=== PATIENT | female | born 1955 | race Caucasian/White ===

== ENCOUNTER 2019-10-22 14:00 | Outpatient (CLI) | payer OTHER, SELFPAY ==
[2019-10-22 14:32] LABS: Influenza Control Valid (Valid)
== END 2019-10-22 14:01 | disposition home or self-care (01) ==
PROVIDERS: PCP Internal Medicine; Visit Provider Internal Medicine
DX: R05 Cough (principal); R51 Headache; J02.9 Acute pharyngitis, unspecified; R50.9 Fever, unspecified
CPT/HCPCS: 87804

== ENCOUNTER 2019-11-20 11:40 | Outpatient (CLI) | payer OTHER, SELFPAY ==
--- NOTE | ~2019-11-20 | XR_ITS ---
EXAMINATION: XR chest 2V 11/20/2019 13:11 INDICATION: Chronic cough. Asthma. PROCEDURE: 2 view chest COMPARISON: 03/24/2018 FINDINGS: The lungs are clear. The cardiomediastinal silhouette is within normal limits. There are no pleural effusions. There is no pneumothorax suspected. IMPRESSION: 1: NO ACUTE CARDIOPULMONARY DISEASE. Reviewed, dictated and finalized at location A.
== END 2019-11-20 11:41 | disposition home or self-care (01) ==
LOC: CHSIMG 11:41
PROVIDERS: PCP Internal Medicine; Visit Provider Internal Medicine
DX: R05 Cough (principal)
CPT/HCPCS: 71046; 94060; 94726; 94729; 95012

== ENCOUNTER 2020-10-12 11:23 | Outpatient (CLI) | payer OTHER, SELFPAY | END 2020-10-12 11:24 | disposition home or self-care (01) | LOC: CHSIMG 11:24 | PROVIDERS: PCP Internal Medicine; Visit Provider Internal Medicine | DX: Z53.8 Procedure and treatment not carried out for other reasons (principal) | CPT/HCPCS: 99199 ==

== ENCOUNTER → 2020-11-07 00:12 | Outpatient (CLI) | payer OTHER, SELFPAY ==
[2020-11-07 19:29] LABS: SARS-CoV-2 RNA PCR Negative
== END ==
PROVIDERS: PCP Internal Medicine; Visit Provider Surgery
DX: Z01.812 Encounter for preprocedural laboratory examination (principal); Z20.822 Contact with and (suspected) exposure to COVID-19
CPT/HCPCS: C9803; U0003; U0005

== ENCOUNTER 2020-11-10 01:28 | Day surgery (SDC) | payer OTHER, SELFPAY ==
[2020-10-27 13:14] VITALS: BMI 31.7
[2020-11-10 06:23] VITALS: BMI 31.4
[2020-11-10] MEDS: LACTATED RINGERS 1,000 ML 150 ML IV CONT (06:39)
[2020-11-10 06:40] VITALS: BP 104/85; PULSE 91; RESP 18; TEMP 36.1; O2SAT 98
--- NOTE | 2020-11-10 07:26 | WPDANESEPPF ---
Anes - Initial Pre Proc Eval Procedure: Operation Date: 11/10/20 07:30 Proposed Procedures p Screening Colonoscopy - Pacheco Alvarez DO Date/Time: 11/10/20 07:26 Surgeon: Pacheco Alvarez DO Pre Op Diagnosis: neoplasm screening Patient Data Age: 65 Gender: F Height: 5 ft 7 in Weight: 90.9 kg Last Vital Signs Temp 97 F L 11/10/20 06:40 Pulse 91 11/10/20 06:40 Resp 18 11/10/20 06:40 BP 104/85 11/10/20 06:40 Pulse Ox 98 11/10/20 06:40 Allergies Allergy/AdvReac Type Severity Reaction Status Date / Time No Known Allergies Allergy Verified 11/10/20 06:15 Home Medications Medication Instructions Recorded Confirmed Type albuterol sulfate 90 mcg/actuation 1 puff INHALATION Q4-6H PRN gm 02/15/20 11/10/20 History aerosol inhaler atorvastatin 10 mg tablet 10 mg PO DAILY 02/15/20 11/10/20 History citalopram 20 mg tablet 20 mg PO DAILY 02/15/20 11/10/20 History levothyroxine 112 mcg capsule 112 mcg PO DAILY 02/15/20 11/10/20 History montelukast 10 mg tablet 10 mg PO DAILY 09/26/20 11/10/20 History fluticasone furoate 100 See Rx Instructions .ROUTE 10/05/20 11/10/20 Rx mcg-vilanterol 25 mcg/dose .COMPLEX #60 ea inhalation powder Patient hx anesthesia problems: none Family hx anesthesia problems: none PMFSH Past Medical History Medical History Chronic fatigue, unspecified Cubital tunnel syndrome on left Generalized anxiety disorder Hypothyroid Impaired fasting glucose Mixed hyperlipidemia Surgical History Surgical History History of removal of ovarian cyst Family History Family History Father , cause was AAA Aortic aneurysm Hypertension Mother Alzheimer's dementia Cerebrovascular accident Sibling Breast cancer Social History Social History Smoking status: Never smoker Alcohol intake: current Drinks per week: 1 Living arrangements: alone Gender identity (if verbalized by the patient): Female Spiritual care concerns: No Anes - Eval Final PreProcedure Day of Procedure 11/10/20 07:26 Patient weight: obese Heart: regular rate and rhythm Lungs: clear to auscultation Airway: Mallampati scale class II Neurological: alert and oriented Last oral intake: >/= 8 hours ASA classification: III Emergent: no Anesthetic plan: proceed Anesthesia type and monitoring: general GIVS and standard monitoring Informed Consent: The patient's anesthetic plan and its attendant risks and benefits were discussed with the patient/family/POA. Questions were solicited and answers provided to the satisfaction of the patient/family/POA.
--- NOTE | 2020-11-10 07:32 | PM.IMHP ---
H&P: HPI History of Present Illness Date/Time: 11/10/20 07:32 Chief Complaint: screening colon Narrative: 65 yo woman presents for colonoscopy. Last done 12-14 years ago and was normal. Denies fam hx colon cancer. Denies hematochezia or melena. Review of Systems Review of Systems: All systems reviewed & are unremarkable except as noted in HPI and below Constitutional: Constitutional: Denies chills, Denies fever(s), Denies headache(s) and Denies weight loss Eyes: Eyes: Denies change in vision ENT: Denies dizziness, Denies headache(s), Denies neck mass and Denies throat swelling Cardiovascular: Cardiovascular: Denies chest pain, Denies lightheadedness and Denies dyspnea Respiratory: Respiratory: Denies cough, Denies dyspnea and Denies wheezing Gastrointestinal: Gastrointestinal: Denies abdominal pain, Denies change in bowel habits, Denies nausea and Denies vomiting Genitourinary: Genitourinary: Denies hematuria and Denies dysuria Musculoskeletal: Musculoskeletal: Reports as per HPI Integumentary/Breasts: Skin/Breast: Reports as per HPI Neurologic: Denies dizziness and Denies headache(s) Allergic/Immunologic: Allergic/Immunologic: Denies throat swelling and Denies wheezing PMF Past Medical History Medical History Chronic fatigue, unspecified Cubital tunnel syndrome on left Generalized anxiety disorder Hypothyroid Impaired fasting glucose Mixed hyperlipidemia Surgical History Surgical History History of removal of ovarian cyst Family History Family History Father , cause was AAA Aortic aneurysm Hypertension Mother Alzheimer's dementia Cerebrovascular accident Sibling Breast cancer Social History Social History Smoking status: Never smoker Alcohol intake: current Drinks per week: 1 Living arrangements: alone Gender identity (if verbalized by the patient): Female Spiritual care concerns: No Meds Home Medications and Allergies Home Medications Medication Instructions Recorded Confirmed Type albuterol sulfate 90 mcg/actuation 1 puff INHALATION Q4-6H PRN gm 02/15/20 11/10/20 History aerosol inhaler atorvastatin 10 mg tablet 10 mg PO DAILY 02/15/20 11/10/20 History citalopram 20 mg tablet 20 mg PO DAILY 02/15/20 11/10/20 History levothyroxine 112 mcg capsule 112 mcg PO DAILY 02/15/20 11/10/20 History montelukast 10 mg tablet 10 mg PO DAILY 09/26/20 11/10/20 History fluticasone furoate 100 See Rx Instructions .ROUTE 10/05/20 11/10/20 Rx mcg-vilanterol 25 mcg/dose .COMPLEX #60 ea inhalation powder Allergies Allergy/AdvReac Type Severity Reaction Status Date / Time No Known Allergies Allergy Verified 11/10/20 06:15 Vital Signs Vital Signs - 24 hr 11/10/20 06:40 Temperature 36.1 C L Pulse Rate 91 Respiratory Rate 18 Blood Pressure 104/85 Pulse Oximetry 98 Exam Const: General: no acute distress and alert Orientation/consciousness: patient oriented x3 HENMT: Head: normocephalic and atraumatic Ears: hearing grossly normal bilaterally General nose exam: Normal nares present Mouth: Yes Normal oral and palatal mucosa present Eyes: Periorbital: periorbital findings normal Sclera: sclerae normal EOM: EOMs intact bilaterally Neck: Neck: normal visual inspection, no lymphadenopathy and trachea midline Chest: Chest palpation & inspection: normal inspection of the chest Resp: Effort & Inspection: normal respiratory effort Auscultation: clear to auscultation bilaterally Cardio: Jugular venous distension: no JVD Rate: regular rate Rhythm: regular rhythm Heart sounds: S1 normal heart sound present and S2 normal heart sound present Peripheral pulses: Peripheral pulses 2+ throughout GI: Inspection: normal to inspection GI
[2020-11-10 07:58] VITALS: BP 92/56; PULSE 74; RESP 16; O2SAT 96
[2020-11-10 08:08] VITALS: BP 106/72; PULSE 68; RESP 18; O2SAT 98
[2020-11-10 08:18] VITALS: BP 106/73; PULSE 62; RESP 16; O2SAT 98
== END 2020-11-10 08:30 | disposition home or self-care (01) ==
PROVIDERS: PCP Internal Medicine; Visit Provider Surgery
PROC: 0DJD8ZZ Inspection of Lower Intestinal Tract, Via Natural or Artificial Opening Endoscopic (ICD-10-PCS; CPT 45378; principal; 2020-11-10 07:30)
DX: Z12.11 Encounter for screening for malignant neoplasm of colon (principal); D12.4 Benign neoplasm of descending colon; E03.9 Hypothyroidism, unspecified; E78.2 Mixed hyperlipidemia; G56.22 Lesion of ulnar nerve, left upper limb; R53.82 Chronic fatigue, unspecified; R73.01 Impaired fasting glucose; F41.1 Generalized anxiety disorder
CPT/HCPCS: 45380; 88305; C9803; J2704; J7120; U0003; U0005

== ENCOUNTER 2021-02-22 09:46 | Outpatient (CLI) | payer OTHER, SELFPAY ==
--- NOTE | ~2021-02-22 | MM_ITS ---
EXAMINATION: MM screening fanny BI w andres HISTORY: Screening TECHNIQUE: Craniocaudal and mediolateral oblique 3-D tomosynthesis images were obtained and synthetic 2-D images were generated. CAD analysis was submitted and interpreted. COMPARISON: Comparison to multiple prior studies sequentially, with oldest reviewed study dated 10/19. BREAST PARENCHYMAL COMPOSITION: There are scattered areas of fibroglandular density. FINDINGS: There is no evidence of suspicious mass, calcification, or architectural distortion to sugg est malignancy in either breast. There has been no suspicious interval change. IMPRESSION: 1. No mammographic evidence of malignancy. 2. Recommend routine screening mammography in one year. BI-RADS Category 1: Negative Reviewed, dictated and finalized at location A.
== END 2021-02-22 09:47 | disposition home or self-care (01) ==
LOC: CHSIMG 09:47
PROVIDERS: PCP Internal Medicine; Visit Provider Internal Medicine
DX: Z12.31 Encounter for screening mammogram for malignant neoplasm of breast (principal)
CPT/HCPCS: 77063; 77067

== ENCOUNTER 2021-05-24 08:54 | Outpatient (CLI) | payer OTHER, SELFPAY ==
--- NOTE | 2021-05-24 09:05 | PC.NURSE ---
Here for OP covid infusion, taken to isolation room
--- NOTE | 2021-05-24 09:15 | PC.NURSE ---
Given information sheet on infusion, consent signed
[2021-05-24] MEDS: FAMOTIDINE 20 MG TABLET PO (09:17)
[2021-05-24] MEDS: ACETAMINOPHEN 325 MG TABLET 650 MG PO (09:17)
[2021-05-24] MEDS: diphenhydrAMINE HCl CAP 25 MG CAPSULE PO (09:17)
[2021-05-24 09:40] VITALS: BP 104/63; PULSE 67; RESP 18; TEMP 36.2; O2SAT 97
[2021-05-24 11:00] VITALS: BP 108/77; PULSE 63; RESP 18; TEMP 36.1; O2SAT 97
--- NOTE | 2021-05-24 11:06 | PC.NURSE ---
saline lock removed, tolerated infusion well, discharged to home ambulatory
== END 2021-05-24 08:55 | disposition home or self-care (01) ==
LOC: CHSTREATRM 08:56
PROVIDERS: PCP Internal Medicine; Visit Provider Internal Medicine
DX: Z23 Encounter for immunization (principal); U07.1 COVID-19
CPT/HCPCS: 96365; A9270; M0245; Q0245

== ENCOUNTER 2021-10-23 15:38 | Outpatient (CLI) | payer OTHER, SELFPAY ==
--- NOTE | ~2021-10-23 | XR_ITS ---
EXAMINATION: XR chest 2V DATE: 10/23/2021 16:05 INDICATION: Acute asthma exacerbation with one week of cough TECHNIQUE: frontal and lateral views of the chest were obtained. COMPARISON: Chest radiograph dated 11/20/2019 FINDINGS: The lungs remain clear with no focal airspace opacities, pulmonary edema, pleural effusion or pneumot horax. The cardiomediastinal silhouette is normal. Chronic mild lower thoracic compression fracture. Moderate thoracic spondylosis. IMPRESSION: 1. No acute cardiopulmonary disease. Reviewed, dictated and finalized at location A.
== END 2021-10-23 15:39 | disposition home or self-care (01) ==
LOC: CHSIMG 15:39
PROVIDERS: PCP Internal Medicine; Visit Provider Internal Medicine
DX: J45.901 Unspecified asthma with (acute) exacerbation (principal)
CPT/HCPCS: 71046

== ENCOUNTER 2022-03-23 12:49 | Outpatient (CLI) | payer OTHER, SELFPAY ==
--- NOTE | ~2022-03-23 | MM_ITS ---
EXAMINATION: MM screening fanny BI w andres HISTORY: Screening mammogram TECHNIQUE: Craniocaudal and mediolateral oblique 3-D tomosynthesis images were obtained and synthetic 2-D images were generated. CAD analysis was submitted and interpreted. COMPARISON: 02/22/2021, 05/21/2019, 07/2017 bilateral screening mammogram examinations BREAST PARENCHYMAL COMPOSITION: The breasts are almost entirely fatty. FINDINGS: There are scattered bilateral benign calcifications, primarily calcified microhematomas. Th ere is no evidence of suspicious mass, calcification, or architectural distortion to suggest malignan cy in either breast. There has been no suspicious interval change. IMPRESSION: 1. No mammographic evidence of malignancy. 2. Recommend routine screening mammography in one year. BI-RADS Category 2: Benign finding(s). Reviewed, dictated and finalized at location A.
== END 2022-03-23 12:50 | disposition home or self-care (01) ==
LOC: CHSIMG 12:51
PROVIDERS: PCP Internal Medicine; Visit Provider Internal Medicine
DX: Z12.31 Encounter for screening mammogram for malignant neoplasm of breast (principal)
CPT/HCPCS: 77063; 77067

== ENCOUNTER 2022-06-21 17:09 | Outpatient (CLI) | payer OTHER, SELFPAY ==
--- NOTE | ~2022-06-21 | XR_ITS ---
XR knee LT min 4V DATE: 06/21/2022 18:30 INDICATION: Knee pain TECHNIQUE: [place], lateral and standing PA and AP views COMPARISON: None FINDINGS: No fracture or dislocation or joint effusion. Joint spaces are preserved. No radiopaque int ra-articular loose body or chondrocalcinosis. No periosteal reaction or bone destruction. IMPRESSION: No significant abnormality Reviewed, dictated and finalized at location B. ER HOOKER IMPRESSION: No significant abnormality
--- NOTE | ~2022-06-21 | XR_ITS ---
XR knee RT min 4V DATE: 06/21/2022 18:31 INDICATION: Knee pain TECHNIQUE: [place], lateral and standing AP and PA views COMPARISON: None FINDINGS: No fracture or dislocation or joint effusion. No radiopaque intra-articular loose body or c hondrocalcinosis. No periosteal reaction or bone destruction. Joint spaces are well preserved. IMPRESSION: No significant abnormality Reviewed, dictated and finalized at location B. PAN OPERATOR IMPRESSION: No significant abnormality
== END 2022-06-21 17:10 | disposition home or self-care (01) ==
PROVIDERS: PCP Internal Medicine; Visit Provider Internal Medicine
DX: M25.562 Pain in left knee (principal); M25.561 Pain in right knee
CPT/HCPCS: 73564

== ENCOUNTER 2022-07-10 12:57 | Outpatient (RCR) | payer OTHER, SELFPAY ==
--- NOTE | 2022-07-10 14:12 | PTOPEVAL1 ---
Assessment and note entered by Celena March, PT Evaluation Information Assessment Status Evaluation Diagnosis B knee pain Subjective Information Manda Hopkins reports that she started having bilateral knee pain about one year ago and it has gotten worse. She is noting difficulty going up and down stairs. She had x-rays that were negative . She started having pain in her right hip about 2 -3 months ago. She notes sometimes she wakes up with pain on the outside of her right knee. She has to go up and down stairs to get to her laundry . Reported Pain Level Pain Score 0: Self Report Assessment PT Clinical Summary Manda Hopkins presents with chronic bilateral knee pain and subacute right hip pain all with an insidious onset. X-rays on bilateral knees came back normal. 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 She objectively demonstrates decreased and painful right hip ROM, decreased right piriformis and bilateral hamstring flexibility, decreased bilateral knee and hip strength, and decreased functional abilities. She will benefit from skilled PT to address these limitations. Plan of Care Interventions Hot Pack/Cold Pack,Manual Therapy,Neuro Re- education,Patient/Caregiver Educati,Therapeutic Activities,Therapeutic Exercise PT Services Indicated Yes Treatment Frequency and 2 times a week for 8 visits Duration These treatments will address the objective and functional deficits as defined above. The patient will be advanced safely and appropriately in order for the patient to progress towards his/her prior level of function. Additional exercises will be introduced and as well as a comprehensive home exercise program upon discharge, if needed, ?to ensure carryover of functional gains achieved in the clinic. This treatment plan has been reviewed and agreement upon by the patient.
--- NOTE | 2022-07-10 14:20 | PTOPEVAL1 ---
Assessment and note entered by Celena March, PT Evaluation Information Assessment Status Evaluation Diagnosis B knee pain Onset 06/22/22 Subjective Information Manda Hopkins reports that she started having bilateral knee pain about one year ago and it has gotten worse. She is noting difficulty going up and down stairs. She had x-rays that were negative . She started having pain in her right hip about 2 -3 months ago. She notes sometimes she wakes up with pain on the outside of her right knee and can not lay on her right side. She has to go up and down stairs to get to her laundry. Reported Pain Level Pain Score 0: Self Report Assessment PT Clinical Summary Manda Hopkins presents with chronic bilateral knee pain and subacute right hip pain all with an insidious onset. X-rays on bilateral knees came back normal. 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 She objectively demonstrates decreased and painful right hip ROM, decreased right piriformis and bilateral hamstring flexibility, decreased bilateral knee and hip strength, and decreased functional abilities. She will benefit from skilled PT to address these limitations. Plan of Care Interventions Hot Pack/Cold Pack,Manual Therapy,Neuro Re- education,Patient/Caregiver Educati,Therapeutic Activities,Therapeutic Exercise PT Services Indicated Yes Treatment Frequency and 2 times a week for 8 visits Duration These treatments will address the objective and functional deficits as defined above. The patient will be advanced safely and appropriately in order for the patient to progress towards his/her prior level of function. Additional exercises will be introduced and as well as a comprehensive home exercise program upon discharge, if needed, ?to ensure carryover of functional gains achieved in the clinic. This treatment plan has been reviewed and agreement upon by the patient.
--- NOTE | 2022-08-07 13:01 | PTOPREEVAL ---
Assessment and note entered by JT File, PT Evaluation Information Assessment Status Progress Diagnosis B knee pain Onset 06/22/22 Subjective Information patient reports she has only been to therapy for her initial evaluation. she reports she has not been compliant her HEP at home, but reports she is ready to return to therapy and get back to work on her bilateral knee and R hip issues. she reports she has no hip or knee pain today, but reports at night she will have pain in the R knee and lower leg. Reported Pain Level Pain Score 0: Self Report Assessment PT Clinical Summary mrs. thomson presents to skilled PT services nearly 1 month since her initial evaluation/last visit. she continues to present with weakness in the hips , tightness in the hips, and pain with activities. she does display some improvement in overall LE strength, but continues to be limited in stair climbing, ambulation, and sleeping due to pain. she would do well to return to skilled PT under he initial POC to achieve improved functional activity performance and quality of life. Plan of Care Interventions Electrical Stimulation,Hot Pack/Cold Pack,Manual Therapy,Neuro Re-education,Patient/Caregiver Educati,Therapeutic Activities,Therapeutic Exercise PT Services Indicated Yes Treatment Frequency and continue 2x weekly for 7 remaining visits on plan Duration of care. These treatments will address the objective and functional deficits as defined above. The patient will be advanced safely and appropriately in order for the patient to progress towards his/her prior level of function. Additional exercises will be introduced and as well as a comprehensive home exercise program upon discharge, if needed, ?to ensure carryover of functional gains achieved in the clinic. This treatment plan has been reviewed and agreement upon by the patient.
--- NOTE | 2022-11-20 16:29 | PCPTNOTE ---
11/20/22: Patient was last seen in PT on 08/09/22. She changed insurance and was no longer in network so she self discharged. Celena March, PT
== END 2022-08-09 23:59 | disposition home or self-care (01) ==
LOC: CHSPT 12:57
PROVIDERS: PCP Internal Medicine; Visit Provider Internal Medicine
DX: M25.562 Pain in left knee (principal); M25.561 Pain in right knee
CPT/HCPCS: 97014; 97110; 97112; 97161; G0283

== ENCOUNTER 2023-08-20 14:17 | Outpatient (CLI) | payer MEDICARE, SELFPAY ==
--- NOTE | ~2023-08-20 | MM_ITS ---
EXAMINATION: MM screening fanny BI w andres HISTORY: Screening TECHNIQUE: Craniocaudal and mediolateral oblique 3-D tomosynthesis images were obtained and synthetic 2-D images were generated. CAD analysis was submitted and interpreted. COMPARISON: Comparison to multiple prior studies sequentially, with oldest reviewed study dated 03/14. BREAST PARENCHYMAL COMPOSITION: The breasts are almost entirely fatty. FINDINGS: There is no evidence of suspicious mass, calcification, or architectural distortion to sugg est malignancy in either breast. There has been no suspicious interval change. IMPRESSION: 1. No mammographic evidence of malignancy. 2. Recommend routine screening mammography in one year. BI-RADS Category 1: Negative Reviewed, dictated and finalized at location A. FORESTER
== END 2023-08-20 14:18 | disposition home or self-care (01) ==
LOC: CHSIMG 14:19
PROVIDERS: PCP Internal Medicine; Visit Provider Internal Medicine
DX: Z12.31 Encounter for screening mammogram for malignant neoplasm of breast (principal)
CPT/HCPCS: 77063; 77067

== ENCOUNTER 2024-09-23 09:23 | Outpatient (CLI) | payer MEDICARE, SELFPAY ==
--- NOTE | ~2024-09-23 | MM_ITS ---
EXAMINATION: MM screening fanny BI w andres HISTORY: Screening TECHNIQUE: Craniocaudal and mediolateral oblique 3-D tomosynthesis images were obtained and synthetic 2-D images were generated. CAD analysis was submitted and interpreted. COMPARISON: Comparison to multiple prior studies sequentially, with oldest reviewed study dated 06/05. BREAST PARENCHYMAL COMPOSITION: Not Dense: The breasts are almost entirely fatty. FINDINGS: There is no evidence of suspicious mass, calcification, or architectural distortion to sugg est malignancy in either breast. There has been no suspicious interval change. IMPRESSION: 1. No mammographic evidence of malignancy. 2. Recommend routine screening mammography in one year. BI-RADS Category 1: Negative Reviewed, dictated and finalized at location B. RONMENTAL ENGINEER SCIENTIST
--- OUTSIDE RECORDS SUMMARY | 2024-09-23 09:36 | XMS_ITS | Clinical Summary ---
Author Organization [facility] Address [address] [address] Care Team Providers Care Margarine Maker Name Role Phone Lesly Reina MD Primary Care Provider [phone] Source Comments [facility],non-owned Affiliates and Associated Physician Practices is amultiple site organization consisting of ambulatory clinics and hospital sitesin [place], [place], [place] and [place]. This disclosure is being madepursuant to the Care Everywhere program and may not contain all information available regarding this patient. Last updated 18.[employer] [facility] Allergies No known active allergies Medications * Be aware that medications may not be up to date on this document. Alwaysverify current medications with the patient. Medication Sig Dispensed Refills Start Date End Date Status atorvastatin (LIPITOR) 10 MG tablet Take 10 mg by mouth once daily Active citalopram (CELEXA) 20 MG tablet Take 20 mg by mouth once daily 01/26/2021 Active levothyroxine (SYNTHROID) 112 MCG tablet Take 112 mcg by mouth every morning 01/26/2021 Active ALBUTEROL IN Inhale by mouth as needed Active budesonide-formoterol (SYMBICORT) 160-4.5 MCG/ACT inhalerIndications:Cou gh,Severe persistent asthma, unspecified whether complicated (HCC) Inhale 2 (two) puffs by mouth 2 times daily 10.2 g 2 08/01/2021 Active albuterol HFA (VENTOLIN HFA) 108 (90 Base) MCG/ACT inhaler Inhale 2 (two) puffs by mouth every 4 hours as needed 54 g 4 10/11/2021 Active Immunizations Name Administration Dates Next Due INFLUENZA VACCINE, TRIV. (AF LURIA, FLUZONE TRIVALENT; 6MO+) (IIV3) 06/25/2012 INFLUENZA VACCINE 06/22/2016 INFLUENZA VACCINE, HIGH-DOSE , QUADR. (FLUZONE HIGH-DOSE QUADRIVALENT; 65Y+), 0.7 ML (HD-IIV4) 04/19/2021 INFLUENZA VACCINE, QUADR. (F LUZONE; FLULAVAL; FLUARIX; AFLURIA QUADRIVALENT; 6MO+), 0.5 ML (IIV4) 05/05/2020,05/28/2018 PNEUMOCOCCAL PPSV23 08/17/2020 PNEUMOCOCCAL PPV VACCINE 03/14/2015 TD VACCINE 02/27/2005 ZOSTER VACCINE, LIVE 07/11/2016 Zoster Hzv Vacc Recombinant Inj Im 03/14/2021 Family History Medical History Relation Name Comments CVA Father Heart Failure Father CVA Mother Heart Failure Mother Cancer - Breast Sister Relation Name Status Comments Father Mother Sister Alive Social History Tobacco Use Types Packs/Day Years Used Date Smoking Tobacco: Never Smokeless Tobacco: Never Alcohol Use Standard Drinks/Week Comments Yes 2 (1 standard drink = 0.6 oz pur e alcohol) Sex and Gender Information Value Date Recorded Sex Assigned at Not on file Gender Identity Not on file Sexual Orientation Not on file Last Filed Vital Signs Vital Sign Reading Time Taken Comments Blood Pressure 128/78 10/11/2021 10:30 AM LINOTYPIST Pulse 84 10/11/2021 10:30 AM LINOTYPIST Temperature 36.2 C (97.2 F) 10/11/2021 10:30 AM LINOTYPIST Respiratory Rate 16 10/11/2021 10:30 AM LINOTYPIST Oxygen Saturation 97% 10/11/2021 10:30 AM LINOTYPIST Inhaled Oxygen Concentration - - Weight 89.9 kg (198 lb 3.2 oz) 10/11/2021 10:30 AM LINOTYPIST Height 167.6 cm (5' 6 ) 07/19/2021 10:39 AM LINOTYPIST Body Mass Index 31.99 07/19/2021 10:39 AM LINOTYPIST Plan of Treatment Health Maintenance Due Date Last Done Comments BONE DENSITY TESTING 1955 COLOGUARD (AGES 45-75) - COLON CA SCREENING 1956 COLON MONITORING 1956 COLONOSCOPY - COLON CA SCREENING 1956 CT COLONOGRAPHY - COLON CA SCREENING 1955 Colorectal Cancer Screening 1955 FIT - COLON CA SCREENING 1956 FLEX SIG - COLON CA SCREENING 1955 MAMMOGRAM 1955 HEPATITIS C SCREENING 04/01/1974 DTAP/TDAP/TD VACCINES (2 - Td or Tdap) 02/27/2015 02/27/2005 SCREENING FOR DIABETES 04/19/2021 ZOSTER VACCINE (3 of 3) 05/09/2021 03/14/2021, 07/11 PNEUMOCOCCAL VACCINE 50+ (2 of 2 - PCV) 08/17/2021 08/17/2020, 03/14/2015 COVID-19 VACCINE (3 - season) 2024 11/04/2020, 10/07/2020 INFLUENZA VACCINE (#1) 2024 , 05/05/2020, 05/28/2018, Additional history exists DEPRESSION SCREENING 08/05/2024 Respiratory Syncytial Virus (RSV) Vaccine Pt: or over 60 yrs (1 - 1-dose 75+ series) 2031 HEPATITIS B VACCINE Aged Out No longe r eligible based on patient's age to complete this topic HIB VACCINE Aged Out No longer eligi ble based on patient's age to complete this topic HPV VACCINE Aged Out No longer eligi ble based on patient's age to complete this topic MENINGOCOCCAL (Group B) VACCINE Aged Out No longer eligible based on patient's age to complete this topic MENINGOCOCCAL VACCINE Aged Out No little rui eligible based on patient's age to complete this topic Care Teams Margarine Maker Relationship Specialty Start Date End Date Lesly Reina MD [address] [place] [address] PCP - General 01/04/21
--- OUTSIDE RECORDS SUMMARY | 2024-09-23 09:36 | XMS_ITS | Referral Summary ---
Author Organization [address] Address [address] [place] [id number] Care Team Providers Care Encapsulator Name Role Phone Unknown, Notinfile Primary Care Provider Unavail able Allergies No known active allergies Medications atorvastatin (LIPITOR) 10 mg tablet Active citalopram (CeleXA) 10 mg tablet Active levothyroxine (Levo-T) 112 mcg tablet Active citalopram (CeleXA) 20 mg tablet 01/26/2021 Active Active Problems No known active problems Social History Tobacco Use Types Packs/Day Years Used Date Smoking Tobacco: Never Assessed Comments Unknown Sex and Gender Information Value Date Recorded Sex Assigned at Not on file Legal Sex Female 10:32 AM CDT Gender Identity Female 04/02/2021 10:47 AM CDT Sexual Orientation Straight 04/02/2021 10 :47 AM CDT Last Filed Vital Signs Vital Sign Reading Time Taken Comments Blood Pressure 130/82 04/02/2021 12:39 PM CDT Pulse 89 04/02/2021 12:39 PM CDT Temperature 36.2 C (97.2 F) 04/02/2021 12:39 PM CDT Respiratory Rate 18 04/02/2021 12:39 PM CDT Oxygen Saturation 95% 04/02/2021 12:39 PM CDT Inhaled Oxygen Concentration - - Weight 89.4 kg (197 lb) 04/02/2021 12:39 PM CDT Height 167.6 cm (5' 6 ) 04/02/2021 12:39 PM CDT Body Mass Index 31.8 04/02/2021 12:39 PM CDT Plan of Treatment Not on file Insurance [facility] H[facility] Care Teams Encapsulator Relationship Specialty Start Date End Date Unknown, Notinfile PCP - General 04/02/21
--- OUTSIDE RECORDS SUMMARY | 2024-09-23 09:36 | XMS_ITS | Patient Health Summary ---
Author Organization [facility] [employer] Address [address] [address] Care Team Providers Care Salvage Diver Name Role Phone Lesly Reina MD Primary Care Provider Note from [facility],non-owned Affiliates and Associated Physician Practices is amultiple site organization consisting of ambulatory clinics and hospital sitesin [place], [place], [place] and [place]. This disclosure is being madepursuant to the Care Everywhere program and may not contain all information available regarding this patient. Last updated 18.[facility] [employer] Allergies No known active allergies Medications * Be aware that medications may not be up to date on this document. Alwaysverify current medications with the patient. * atorvastatin (LIPITOR) 10 MG tablet Take 10 mg by mouth once daily * citalopram (CELEXA) 20 MG tablet(Started 01/26/2021) Take 20 mg by mouth once daily * levothyroxine (SYNTHROID) 112 MCG tablet(Started 01/26/2021) Take 112 mcg by mouth every morning * ALBUTEROL IN Inhale by mouth as needed * budesonide-formoterol (SYMBICORT) 160-4.5 MCG/ACT inhaler(Started 08/01/2021) Inhale 2 (two) puffs by mouth 2 times daily 2 refills by 08/01/2022 * albuterol HFA (VENTOLIN HFA) 108 (90 Base) MCG/ACT inhaler(Started 10/11/2021) Inhale 2 (two) puffs by mouth every 4 hours as needed 4 refills by 10/11/2022 Immunizations * INFLUENZA VACCINE, TRIV. (AFLURIA, FLUZONE TRIVALENT; 6MO+) (IIV3)(Given 06/25/2012) * INFLUENZA VACCINE(Given 06/22/2016) * INFLUENZA VACCINE, HIGH-DOSE, QUADR. (FLUZONE HIGH-DOSE QUADRIVALENT; 65Y+), 0.7 ML (HD-IIV4)(Given 04/19/2021) * INFLUENZA VACCINE, QUADR. (FLUZONE; FLULAVAL; FLUARIX; AFLURIA QUADRIVALENT; 6MO+), 0.5 ML (IIV4)(Given 05/05/2020, 05/28/2018) * PNEUMOCOCCAL PPSV23(Given 08/17/2020) * PNEUMOCOCCAL PPV VACCINE(Given 03/14/2015) * TD VACCINE(Given 02/27/2005) * ZOSTER VACCINE, LIVE(Given 07/11/2016) * Zoster Hzv Vacc Recombinant Inj Im(Given 03/14/2021) Social History Tobacco Use Types Packs/Day Years [...] Comments Blood Pressure 128/78 10/11/2021 10:30 AM BANQUET P[facility]OT Pulse 84 10/11/2021 10:30 AM BANQUET P[facility]OT Temperature 36.2 C (97.2 F) 10/11/2021 10:30 AM BANQUET PILOT Respiratory Rate 16 10/11/2021 10:30 AM B[facility] P[facility]OT Oxygen Saturation 97% 10/11/2021 10:30 AM BANQUET PILOT Inhaled Oxygen Concentration - - Weight 89.9 kg (198 lb 3.2 oz) 10/11/2021 10:30 AM [facility] P[facility] Height 167.6 cm (5' 6 ) 07/19/2021 10:39 AM [facility] Body Mass Index 31.99 07/19/2021 10:39 AM [facility] P[facility] Procedures * CBC W AUTO DIFFERENTIAL(Performed 10/16/2021) * ALLERGEN INTERPRETATION(Performed 10/16/2021) * ALLERGEN RESPIRATORY PNL REGION 8 ([place])(Performed 10/16/2021) * COMPLETE PFT W/WO BRONCHODILATOR(Performed 06/22/2021) Performed for Cough * CT CHEST WO CONTRAST(Performed 06/22/2021) Performed for Cough Results * ALLERGEN INTERPRETATION (10/16/2021 2:20 PM CDT) Interpretation See Below [facility] Comment: Specific Level of Allergen IGE Class kU/L Specific IGE Antibody ----- --------- 0 <0.10 Absent/Undetectable 0/1 0.10-0.34 Very Low Level 1 0.35-0.69 Low Level 2 0.70-3.49 Moderate Level 3 3.50-17.4 High Level 4 17.5-49.9 Very High Level 5 50-100 Very High Level 6 >100 Very High Level The clinical relevance of allergen results of 0.10-0.34 kU/L are undetermined and intended for specialist use. Allergens denoted with a include results using one or more analyte specific reagents. In those cases, the test was developed and its analytical performance characteristics have been determined by [facility] [employer]. It has not been cleared or approved by the U.S. Food and Drug Administration. This assay has been validated pursuant to the CLIA regulations and is used for clinical purposes. Test Performed at: [facility] [address] [place] [address] BETTE ALICIA DO,MPH 10/16/2021 2:20 PM CDT 10/16/2021 2:21 PM CDT Govind Peters MD LAB - SEROLOGY ORDER [facility] [address] [place] [address] * (ABNORMAL) ALLERGEN RESPIRATORY PROF ([place]) IGE (10/16/2021 2:20 PM CDT) Allergen Dermatophagoides pteronyssinus <0.10 kU/L [facility] Class 0 [facility] Allergen Dermatophagoides farinae <0.10 kU/L [facility] Class 0 [facility] Allergen P. notatum <0.10 kU/L [facility] Class 0 [facility] Allergen C Herbarum <0.10 kU/L [facility] Class 0 [facility] Allergen Aspergillus fumigatus <0.10 kU/L [facility] Class 0 [facility] Allergen Alternaria alternata <0.10 kU/L [facility] Class 0 [facility] Allergen Cat Dander <0.10 kU/L [facility] Class 0 [facility] Allergen Dog Dander <0.10 kU/L [facility] Class 0 [facility] Allergen Cockroach Jordanian <0.10 kU/L [facility] Class 0 [facility] Allergen Maple <0.10 kU/L [facility] Class 0 [facility] Allergen Mountain Suffern <0.10 kU/L [facility] Class 0 [facility] Allergen Franklin Tree <0.10 kU/L [facility] Class 0 [facility] Allergen [place] <0.10 kU/L [facility] Class 0 [facility] Allergen [place] Tree <0.10 kU/L [facility] Class 0 [facility] Allergen White Ismael <0.10 kU/L [facility] Class 0 [facility] Allergen Mathews <0.10 kU/L [facility] Class 0 [facility] Allergen Elm <0.10 kU/L [facility] Class 0 [facility] Allergen Patillas/Pecan Tree <0.10 kU/L [facility] Class 0 [facility] Allergen White [place] <0.10 kU/L [facility] Class 0 [facility] Allergen Bermuda Grass 0.51(H) kU/L [facility] Class 1 [facility] Allergen Georges Grass 1.36(H) kU/L [facility] Class 2 [facility] Allergen Common Ragweed 0.17(H) kU/L [facility] Class 0/1 [facility] Allergen Rough Pigweed <0.10 kU/L [facility] Class 0 [facility] Allergen Bulgarian Thistle <0.10 kU/L [facility] Class 0 [facility] Allergen Rough Pink Elder <0.10 kU/L [facility] Class 0 [facility] Allergen Mouse Urine Protein <0.10 kU/L [facility] Class 0 [facility] IgE 26 <TB=104 kU/L [facility] Comment: Test Performed at: [facility] [id number] [place] [address] BETTE ALICIA DO,MPH 10/16/2021 2:20 PM CDT 10/16/2021 2:21 PM CDT Govind Peters MD LAB - CHEMISTRY MICKIE Mosher Organization Address City/State/ZIP Co de Phone Number [facility] [address] [place] [address] * (ABNORMAL) CBC WITH DIFFERENTIAL (10/16/2021 2:20 PM CDT) White Blood Cell Count 7.6 3.8 - 10.8 Thousand/u L [facility] RBC 5.14(H) 3.80 - 5.10 Million/uL [facility] Hemoglobin 15.1 11.7 - 15.5 g/dL [facility] Hematocrit 45.1(H) 35.0 - 45.0 % [facility] MCV 87.7 80.0 - 100.0 fL [facility] MCH 29.4 27.0 - 33.0 pg [facility] MCHC 33.5 32.0 - 36.0 g/dL [facility] RDW 12.5 11.0 - 15.0 % [facility] Platelet Count 319 140 - 400 Thousand/u L [facility] MPV 11.7 7.5 - 12.5 fL [facility] Neutrophil Absolute 5822 1500 - 7800 cells/uL [facility] Lymphocytes Absolute 1376 850 - 3900 cells/uL [facility] Absolute Monocytes 258 200 - 950 cells/uL [facility] Eosinophils Absolute 91 15 - 500 cells/uL [facility] Basophils Absolute 53 0 - 200 cells/uL [facility] Granulocytes % 76.6 % [facility] Lymphocytes % 18.1 % [facility] Monocytes % 3.4 % [facility] Eosinophils % 1.2 % [facility] Basophils % 0.7 % [facility] Comment: Test Performed at: [id number] [address] BETTE ALICIA DO,MPH 10/16/2021 2:20 PM CDT 10/16/2021 2:21 PM CDT Govind Peters MD LAB - HEMATOLOGY ORD ERABLES [facility] [address] [place] [address] * COMPLETE PFT W/WO BRONCHODILATOR (06/22/2021 2:13 PM [facility]) Impressions Jose Carlos Kaba MD - 06/22/2021 2:13 PM [facility] DEPARTMENT OF PULMONARY, CRITICAL CARE, AND SLEEP MEDICINE PULMONARY FUNCTION TEST Please see technologist's comments mentioned in the report. INTERPRETATION: SPIROMETRY: FVC: normal FEV1: normal FEV1/FVC ratio is normal. BRONCHODILATOR RESPONSE: There is no significant response to bronchodilator therapy however does not mean the patient would not benefit from bronchodilator therapy FLOW-VOLUME LOOPS: Normal flow-volume loops LUNG VOLUMES: RV decreased DLCO: Unadjusted for Hb and COHb is normal DLCO: Corrected for Hb and COHb is not able to perform AIRWAY RESISTANCE: The airway resistance is normal and the specific conductance is normal ARTERIAL BLOOD GAS ANALYSIS: Not performed IMPRESSION: 1. Normal spirometry 2. No significant positive bronchodilator response, however this does not preclude the use of bronchodilators 3. There is no previous study available for comparison Alexia Thomas DO Pulmonary/Critical Care Medicine, PGY-4 I have reviewed the above study and agree with the interpretation as listed above. Jose Carlos Kaba MD Garment Finisher of Pulmonary & Critical Care Medicine [facility] Pager [phone] Narrative Jose Carlos Kaba MD - 06/22/2021 2:13 PM [facility] Alexia Thomas DO 06/22/2021 3:44 PM Govind Peters MD RESPIRATORY THERAPY ORDERABLES * CT CHEST WO CONTRAST (06/22/2021 11:29 AM [facility]) Anatomical Region Laterality Modality Chest Computed Tomogra phy 06/22/2021 1:10 PM [facility] Impressions 06/22/2021 1:39 PM [facility] Impression: 1.No pulmonary parenchymal or airway process. 2.Incidental 3 mm nodule in the left lower lobe. Per Fleischner Society guidelines, follow-up imaging is not required in a low risk patient. Report drafted by Phu Wing (resident) I, Dr. HOUSTON LEBLANC have personally reviewed and interpreted this examination/study. This report was electronically signed by HOUSTON LEBLANC on 06/22/2021 1:39 PM . Narrative 06/22/2021 1:39 PM [facility] Procedure Information DATE: 06/22/2021 11:31 AM EXAMINATION: Computed tomography (CT) of the chest without contrast TECHNIQUE: CT of the chest was performed without contrast according to standard protocol. Clinical Information HISTORY: R05.9: Cough COMPARISON: None. Findings Evaluation of visceral and vascular structures is degraded due to lack of intravenous contrast administration. Lines/Tubes: None. Lower neck and axillae: Normal. Mediastinum and Toya: No enlarged lymph nodes are present. Heart and Pericardium: The cardiac chambers are normal in size. No pericardial fluid or thickening is present. Lung Parenchyma, Airways, and Pleural Spaces: No pulmonary parenchymal or airway process is present. There is a 3 mm nodule in the left lower lobe (series 4, image 59). Mild right lower lobe atelectasis. There is no pleural effusion or pneumothorax. Bones and Soft Tissue: There is a prominent Schmorl's node in the T11 superior endplate. Mild degenerative changes are seen in the spine. Normal soft tissues. Upper Abdomen: The visible upper abdominal viscera are unremarkable. Procedure Note Houston Leblanc MD - 06/22/2021 Procedure Information DATE: 06/22/2021 11:31 AM EXAMINATION: Computed tomography (CT) of the chest without contrast TECHNIQUE: CT of the chest was performed without contrast according to standard protocol. Clinical Information HISTORY: R05.9: Cough COMPARISON: None. Findings Evaluation of visceral and vascular structures is degraded due to lackof intravenous contrast administration. Lines/Tubes: None. Lower neck and axillae: Normal. Mediastinum and Toya: No enlarged lymph nodes are present. Heart and Pericardium: The cardiac chambers are normal in size. No pericardial fluid or thickening is present. Lung Parenchyma, Airways, and Pleural Spaces: No pulmonary parenchymal or airway process is present. There is a 3 mm nodule in the left lower lobe (series 4, image 59). Mild right lowerlobe atelectasis. There is no pleural effusion or pneumothorax. Bones and Soft Tissue: There is a prominent Schmorl's node in the T11 superior endplate. Mild degenerative changes are seen in the spine. Normal soft tissues. Upper Abdomen: The visible upper abdominal viscera are unremarkable. Impression: 1.No pulmonary parenchymal or airway process. 2.Incidental 3 mm nodule in the left lower lobe. Per Fleischner Society guidelines, follow-up imaging is not required in a low risk patient. Report drafted by Phu Wing (resident) I, Dr. HOUSTON LEBLANC have personally reviewed and interpreted this examination/study. This report was electronically signed by HOUSTON LEBLANC on 06/22/2021 1:39 PM . Govind Peters MD CT ORDERABLES Care Teams Salvage Diver Relationship Specialty Start Date End Date Lesly Reina MD [address] [place] [address] [facility] - General 01/04/21
--- OUTSIDE RECORDS SUMMARY | 2024-09-23 09:36 | XMS_ITS | Clinical Summary ---
Author Organization [address] Address [address] [place] [id number] Care Team Providers Care Record Clerk Name Role Phone Unknown, Notinfile Primary Care [...] Orientation Straight 04/02/2021 10 :47 AM CDT Obstetrics History Last Filed Vital Signs Vital Sign Reading [...] Plan of Treatment Not on file Insurance [facility] HMO Care Teams Record Clerk Relationship Specialty Start Date End Date Unknown, Notinfile PCP - General 04/02/21
--- OUTSIDE RECORDS SUMMARY | 2024-09-23 09:36 | XMS_ITS | Referral Summary ---
Author Organization [facility] Address [address] [place] [address] Care Team Providers Care Animal Skinner Name Role Phone Lesly Reina MD Primary Care Provider [phone] Source Comments [facility]?,non-owned Affiliates and Associated Physician Practices is amultiple site organization consisting of ambulatory clinics and hospital sitesin [place], [place], [place] and [place]. This disclosure is being madepursuant to the Care Everywhere program and may not contain all information available regarding this patient. Last updated 18.[facility] Allergies No known active allergies Medications * [...] Zoster Hzv Vacc Recombinant Inj Im 03/14/2021 Social History Tobacco Use Types Packs/Day Years [...] Comments Blood Pressure 128/78 10/11/2021 10:30 AM AUTOMATIC PACKER OPERATOR Pulse 84 10/11/2021 10:30 AM AUTOMATIC PACKER OPERATOR Temperature 36.2 C (97.2 F) 10/11/2021 10:30 AM AUTOMATIC PACKER OPERATOR Respiratory Rate 16 10/11/2021 10:30 AM AUTOMATIC PACKER OPERATOR Oxygen Saturation 97% 10/11/2021 10:30 AM AUTOMATIC PACKER OPERATOR Inhaled Oxygen Concentration - - Weight 89.9 kg (198 lb 3.2 oz) 10/11/2021 10:30 AM AUTOMATIC PACKER OPERATOR Height 167.6 cm (5' 6 ) 07/19/2021 10:39 AM AUTOMATIC PACKER OPERATOR Body Mass Index 31.99 07/19/2021 10:39 AM AUTOMATIC PACKER OPERATOR Plan of Treatment Not on file Care Teams Animal Skinner Relationship Specialty Start Date End Date Lesly Reina MD [address] [place] [address] PCP - General 01/04/21
== END 2024-09-23 09:24 | disposition home or self-care (01) ==
LOC: CHSIMG 09:28
PROVIDERS: PCP Internal Medicine; Visit Provider Internal Medicine
DX: Z12.31 Encounter for screening mammogram for malignant neoplasm of breast (principal)
CPT/HCPCS: 77063; 77067

== ENCOUNTER 2025-01-12 12:16 | Outpatient (CLI) | payer MEDICARE, SELFPAY ==
--- NOTE | ~2025-01-12 | DEXA_ITS ---
Bone Density Report Name: KAYLA GONSALES Age: 69 Sex: Female Ethnicity: White Date of : 1955 Indication: postmenopausal; screening for osteoporosis; asthma or emphysema; Referring Provider: Lesly Reina Study: Bone densitometry was performed. Exam Date: January 12, 2025 Accession number: [id number] Bone Density: Region BMD T-score Z-score Classification AP Spine(L1-L4) 0.936 -1.0 1.0 Normal Femoral Neck (Left) 0.740 -1.0 0.7 Normal Total Hip (Left) 0.932 -0.1 1.4 Normal Femoral Neck (Right) 0.709 -1.3 0.5 Osteopenia Total Hip (Right) 0.900 -0.3 1.1 Normal Femoral Neck Mean 0.725 -1.1 0.6 Osteopenia Total Hip Mean 0.916 -0.2 1.2 Normal World Health Organization criteria for BMD impression classify patients as: Normal (T-score at or above -1.0), Osteopenia (T-score between -1.0 and -2.5), or Osteoporosis (T-score at or below -2.5). 10-year Fracture Risk(1): Major Osteoporotic Fracture 8.7% Hip Fracture 0.9% Reported Risk Factors: [place] (), Neck BMD=0.709, BMI=31.6 (1) FRAX(R) Version 3.08. Fracture probability calculated for an untreated patient. Fracture probability may be lower if the patient has received treatment. Clinical Information Provided by Patient: Has used the following medications: multivitamin Has the following medical conditions: Asthma or Emphysema Patient maximum height was 65.7 Menopause Age: 46 No regular weight bearing exercise Drinks caffeinated beverages Onset of menses at age 15 Number of children 4 Impression: The patient has low bone mass, based on the Right Femoral Neck T-score. Discussion: BONE DENSITY IS LOW AT ONE OR MORE SKELETAL SITES. This patient's lowest T-score is low at one or more skeletal sites. It meets the World Health Organization's (WHO) criteria for ?low bone mass? (T-score between -1.0 and -2.5). The patient's 10-year risk of fracture as calculated by FRAX is less than the threshold where pharmacological therapy is recommended by the National Osteoporosis Foundation (NOF). However, all treatment decisions require clinical judgment and consideration of individual patient factors, including patient preferences, comorbidities, previous drug use, risk factors not captured in the FRAX model (e.g., frailty, falls, vitamin D deficiency, increased bone turnover, interval significant decline in bone density) and possible under or overestimation of fracture risk by FRAX. The patient should follow a healthful lifestyle (good nutrition with adequate calcium and vitamin D, and appropriate weight-bearing exercise). Follow-Up: Consider repeating this study in 2 to 3 years to reassess this patient's status, or sooner if there is some new clinical indication. Reported by: ALEX on 01/12/2025 12:41:00 PM. Reviewed, dictated and finalized at location A.
--- OUTSIDE RECORDS SUMMARY | 2025-01-12 13:11 | XMS_ITS | Clinical Summary ---
Author Organization [facility] [employer] Address [address] [place] [address] Care Team Providers Care Gill Box Tender Name Role Phone Lesly Reina MD Primary Care Provider [phone] Source Comments [facility] [employer],non-owned Affiliates and Associated Physician Practices is amultiple site organization consisting of ambulatory clinics and hospital sitesin [place], [place], [place] and [place]. This disclosure is being madepursuant to the Care Everywhere program and may not contain all information available regarding this patient. Last updated 18.[employer] Allergies No known active allergies Medications * Be aware that medications may not be up to date on this document. Alwaysverify current medications with the patient. atorvastatin (LIPITOR) 10 MG tablet Take 10 mg by mouth once daily Active citalopram (CELEXA) 20 MG tablet Take 20 mg by mouth once daily 01/26/2021 Active levothyroxine (SYNTHROID) 112 MCG tablet Take 112 mcg by mouth every morning 01/26/2021 Active ALBUTEROL IN Inhale by mouth as needed Active budesonide-formo terol (SYMBICORT) 160-4.5 MCG/ACT inhalerIndicatio ns:Cough,Severe persistent asthma, unspecified whether complicated (HCC) Inhale 2 (two) puffs by mouth 2 times daily 10.2 g 2 08/01/2021 Active albuterol HFA (VENTOLIN HFA) 108 (90 Base) MCG/ACT inhaler Inhale 2 (two) puffs by mouth every 4 hours as needed 54 g 4 10/11/2021 Active Immunizations Immunization Administration Dates Next Due INFLUENZA VACCINE, TRIV. [...] drink = 0.6 oz pur e alcohol) Comments No Sex and Gender Information Value Date Recorded Sex Assigned at Not on file Legal Sex Female 4:03 PM CDT Gender Identity Not on file Sexual Orientation Not on file Last Filed Vital Signs Vital Sign Reading Time Taken Comments Blood Pressure 128/78 10/11/2021 10:30 AM SENIOR LIVING ADVISOR Pulse 84 10/11/2021 10:30 AM SENIOR LIVING ADVISOR Temperature 36.2 C (97.2 F) 10/11/2021 10:30 AM SENIOR LIVING ADVISOR Respiratory Rate 16 10/11/2021 10:30 AM SENIOR LIVING ADVISOR Oxygen Saturation 97% 10/11/2021 10:30 AM SENIOR LIVING ADVISOR Inhaled Oxygen Concentration - - Weight 89.9 kg (198 lb 3.2 oz) 10/11/2021 10:30 AM SENIOR LIVING ADVISOR Height 167.6 cm (5' 6) 07/19/2021 10:39 AM SENIOR LIVING ADVISOR Body Mass Index 31.99 07/19/2021 10:39 AM SENIOR LIVING ADVISOR Plan of Treatment Health Maintenance Due Date [...] VACCINE (3 - season) 2024 11/04/2020, 10/07/2020 DEPRESSION SCREENING 08/05/2024 INFLUENZA VACCINE (Season Ended) 2025 04/19/2021, 05/05/2020, 05/28/2018, Additional history exists Respiratory Syncytial Virus (RSV) Vaccine Pt: or [...] complete this topic MENINGOCOCCAL (Group B) VACCINE SHARED DECISION-MAKING Aged Out No longer eligible based on patient's age to complete this topic MENINGOCOCCAL GROUPS A/C/Y/W VACCINE Aged Out No longer eligible based on patient's age to complete this topic Insurance AETNA AETNA AETNA Care Teams Gill Box Tender Relationship Specialty Start Date End Date Lesly Reina MD [address] [place] [address] PCP - General 01/04/21
--- OUTSIDE RECORDS SUMMARY | 2025-01-12 13:11 | XMS_ITS | Referral Summary ---
Author Organization [address] Address [address] [place] [id number] Care Team Providers Care Dental Laboratory Assistant Name Role Phone Unknown, Notinfile Primary Care [...] 12:39 PM CDT Height 167.6 cm (5' 6) 04/02/2021 12:39 PM CDT Body Mass Index 31.8 04/02/2021 12:39 PM CDT Plan of Treatment Not on file [facility] Care Teams Dental Laboratory Assistant Relationship Specialty Start Date End Date Unknown, Notinfile PCP - General 04/02/21
--- OUTSIDE RECORDS SUMMARY | 2025-01-12 13:11 | XMS_ITS | Clinical Summary ---
Author Organization [address] Address [address] [place] [id number] Care Team Providers Care Rn Documentation Specialist Name Role Phone Unknown, Notinfile Primary Care [...] Plan of Treatment Not on file Insurance [facility] HMO Care Teams Rn Documentation Specialist Relationship Specialty Start Date End Date Unknown, Notinfile PCP - General 04/02/21
== END 2025-01-12 12:17 | disposition home or self-care (01) ==
PROVIDERS: PCP Internal Medicine; Visit Provider Internal Medicine
DX: Z78.0 Asymptomatic menopausal state (principal); M85.88 Other specified disorders of bone density and structure, other site
CPT/HCPCS: 77080